=== PATIENT | female | born 1995 ===

== ENCOUNTER 2016-12-20 12:55 | Inpatient (IN) | payer OTHER ==
[~2016-12-20] VITALS: Ht 167.6 cm; Wt 75.7 kg
[2016-12-20] MEDS ORDERED: Lactated Ringer's 1,000 ML IV PRN (13:23)
[2016-12-20] MEDS ORDERED: Sodium Chloride LOK Flush 10 mL Syringe IVFLUSH PRN (13:25)
[2016-12-20] MEDS ORDERED: fentaNYL-PF 50 mCg/mL 2 mL Inj IVPUSH PRN (13:25)
[2016-12-20] MEDS ORDERED: Penicillin G K Inj 5,000,000 UNITS in Dextrose 5% Minibag Plus 100 ML IV ONE (13:25)
[2016-12-20] MEDS ORDERED: Oxytocin 10 Unit/mL Inj IM PRN ×2 (13:25→21:20)
[2016-12-20] MEDS ORDERED: Hemorrhage Kit, Post Partum XX ONE ×2 (13:25→21:20)
[2016-12-20] MEDS ORDERED: Oxytocin 30 Units/500 mL LR 30 UNITS in IV Premix 1 EACH IV PRN ×3 (13:25→21:20)
[2016-12-20] MEDS ORDERED: Methylergonovine 0.2 mg/mL Inj IM PRN ×2 (13:25→21:20)
[2016-12-20] MEDS ORDERED: Carboprost 250 mCg/mL Inj IM PRN ×2 (13:25→21:20)
[2016-12-20 14:06] LABS: Mean Corpuscular Hemoglobin 30.7 pg (27.0-35.0); Mean Corpuscular Volume 92.3 fL (81-100)
[2016-12-20] MEDS ORDERED: fentaNYL 2 mCg/mL-Bupivicaine 0.125% 100 mL Premix EPIDURAL ONE (14:23)
[2016-12-20] MEDS ORDERED: fentaNYL 2 mCg/mL-Bupiv 0.125% 100 ML EPIDURAL SCH (14:25)
[2016-12-20] MEDS ORDERED: EPHEDrine Sulfate 50 mg/mL Inj IVPUSH PRN (14:25)
[2016-12-20] MEDS ORDERED: Ondansetron 2 mg/mL 2 mL Inj IVPUSH PRN (14:25)
[2016-12-20] MEDS ORDERED: Lactated Ringer's 500 ML IV ONE (14:25)
[2016-12-20] MEDS ORDERED: Atropine 1 mg/10 mL (Code) Syringe IVPUSH PRN (14:25)
[2016-12-20] MEDS ORDERED: Phenylephrine/NS-PF 100 mCg/mL 5 mL Syringe IVPUSH PRN (14:25)
--- NOTE | 2016-12-20 14:27 | PCM.HPANE ---
Patient Data Surgeon Admitting Provider:Caleb Moses MD Attending Provider:Caleb Moses MD Primary Care Physician:Caleb Moses MD Other Provider: Reason for Visit Term Labor Check TERM LABOR CHECK Ht/WT & BMI Body Mass Index Allergies Coded Allergies: No Known Allergies (Unverified , 12/20/16) Medications Hypertension Medication: No Home Meds Incl Beta Delmi: No History Hx of Heart Problems?: No Hx of Respiratory Problem?: No Hx Neurologic Problems?: No Hx of GI Problems?: No Female Hx: Positive for:: Currently Hx Surgeries?: No Smoking Status: Unknown if Ever Smoker Stop/Bang Treated for Sleep Apnea?: No Do You Have a CPAP Machine?: No CARLOS Risk Assessment: Low Risk, <3 Yes Risk Assessment Category Category 1A: Patient has history of documented sleep apnea, and HAS NOT received any narcotic, sedative or anesthesia administration during this stay. Category 1B: Patient has history of documented sleep apnea, and HAS received any narcotic , sedative or anesthesia administration during this stay Category 2: Patient has SUSPECTED Obstructive Sleep Apnea, and HAS received any narcotic , sedative or anesthesia administration during this stay. Category 3: Patient has SUSPECTED Obstructive Sleep Apnea and HAS NOT received narcotic, sedative or anesthesia administration during this stay. Category 4: Outpatient in Procedural Areas with known sleep apnea or who screen positive for High Risk via the STOP/BANG questionnaire. Exam Exam General Appearance: Oriented X3 HEENT/AIRWAY: MP 2 Lungs: Normal Air Movement Heart: Regular Rate/Rhythm Meds/Labs/Diagnostics Admission Meds Current Medications Penicillin G Potassium/ Dextrose/Water (Pfizerpen Inj/ D5W Minibag Plus) 100 ml @ 240 mls/hr ONCE ONCE IV Last administered on 12/20/16t 14:09; Start at 13:25; Stop 12/20/16 at 13:49; Status DC Labs Test 12/20/16 13:44 White Blood Count 14.2th/mm3 (3.8-10.1) Red Blood Count 4.69mil/mm3 (3.90-5.20) Hemoglobin 14.4g/dL (12.0-15.6) Hematocrit 43.3% (35.0-46.0) Mean Corpuscular Volume 92.3fL (81-100) Mean Corpuscular Hemoglobin 30.7pg (27.0-35.0) Mean Corpuscular Hemoglobin Concent 33.3% (32.0-37.0) Red Cell Distribution Width 12.7% (12.3-15.4) Platelet Count 281bil/L (150-400) Plan Impression Patient chart reviewed, patient interviewed and anesthestic plan with risks, benefits, and alternatives discussed, and informed consent obtained. ASA Physical Status: ASA2 Mod Systemic Disease Anesthetic Plan: Epidural Bene/Risks/Altern/Consents: Yes HP Complete Prior to Induction: Yes Didier Leone MD Dec 20, 2016 14:27
[2016-12-20] MEDS: Lactated Ringer's 1,000 ML IV SCH ×2 (15:15→17:50)
--- NOTE | 2016-12-20 16:41 | HP ---
[address] [address] HISTORY AND PHYSICAL PATIENT: ELICIA PISANO : 1995 MR#: [id number] ADMIT: 12/20/2016 JOB ID: [id number] ADMISSION DIAGNOSIS: Active labor at term. HISTORY OF PRESENT ILLNESS: Patient is 21-year-old, 1, para 0, at 39 weeks and 5 days gestational age by LMP, confirmed by 11-week ultrasound who had her complicated with the following. 1. Transfer of care from [facility] at around 28 weeks. 2. History of laparotomy in 2014 for multiple large ovarian cysts, per patient. Benign. No Complications. 3. History of low grade HERMELINDA Pap with negative high-risk HPV in June 2016. Followup Pap on November 2016 was within normal limits. 4. GBS positive bacteriuria. Patient presented in active labor with contractions. Cervical exam this morning was 1 cm and patient was sent home. Presented to triage for 2nd time, with 4 cm dilated cervix. No bleeding , no leakage of fluid. Reports movements. PAST OBSTETRICAL HISTORY: Primigravida. PAST GYNECOLOGIC HISTORY: No history of STDs. History of low-grade HERMELINDA Pap in June 2016. Followup Pap in November 2016 was within normal limits. PAST MEDICAL HISTORY: Insignificant. PAST SURGICAL HISTORY: Laparotomy in 2014 for three large ovarian cysts. Benign pathology. ALLERGIES: No known drug allergies. MEDICATIONS: vitamins. SOCIAL HISTORY: Denied any alcohol consumption. Denies any drugs of abuse. Denied any cigarette smoking. LABORATORIES: O-positive, antibody negative, rubella immune, serology nonreactive, hepatitis B surface antigen negative. HIV nonreactive. Quad screen, patient declined. One-hour glucose screening 103. GBS positive bacteriuria. PHYSICAL EXAMINATION: Patient is alert, oriented x3. Vital signs are 115/79 for blood pressure, respirations 16, pulse is 84, temperature 37.2 degrees centigrade. Heart is regular rate and rhythm. Positive S1, S2. Lungs clear to auscultation bilaterally. Abdomen: Gravid uterus, nontender. Positive bowel sounds. Lower extremities: No calf tenderness appreciated bilaterally. Cervical exam: 7 cm dilated cervix, 90% effaced, -2 station, bulging membranes. heart tracing showing baseline of 140 beats per minute, positive accelerations, no decelerations, moderate variability, category 1 heart tracing. ASSESSMENT AND PLAN: Patient is a 21-year-old, 1, para 0, at 39 weeks and 5 days gestational age by last menstrual period, confirmed by 11-week ultrasound. complicated with the above list. 1. Active labor. Expectant management. 2. GBS bacteriuria. Penicillin prophylaxis started. 3. Discussed intrapartum analgesia. Patient opted for epidural analgesia, anesthesia notified. 4. Category 1 heart tracing. Will continue with external monitoring. All the above was discussed in details with the patient who agrees to the plan. STEPHANY
[2016-12-20] MEDS ORDERED: Penicillin G K 3,000,000 Units/50 mL D5W Premix IV ONE (17:42)
[2016-12-20] MEDS ORDERED: Penicillin G K Inj 3,000,000 UNITS in IV Premix 1 EACH IV SCH (20:30)
[2016-12-20] MEDS ORDERED: Lactated Ringer's 1,000 ML IV SCH (21:17)
[2016-12-20] MEDS ORDERED: Witch Hazel-Glycerin Pads TOPICAL PRN (21:20)
[2016-12-20] MEDS ORDERED: Benzocaine (Dermoplast) 20% 60 Gm Spray TOPICAL PRN (21:20)
[2016-12-20] MEDS ORDERED: LANOlin HPA 7 Gm Ointment TOPICAL PRN (21:20)
[2016-12-20] MEDS ORDERED: oxyCODONE-Acetamin 5-325 mg Tablet PO PRN (21:20)
--- NOTE | 2016-12-21 07:30 | OP ---
[address] [address] OPERATIVE REPORT PATIENT: ELICIA PISANO : 1995 MR#: [id number] ADMIT: 12/20/2016 JOB ID: [id number] DATE OF SURGERY: 12/20/2016 PREOPERATIVE DIAGNOSIS(ES): A 21-year-old, 1, para 0, at 39 weeks and 5 days gestational age by last menstrual period, confirmed by 11 week ultrasound, admitted in active labor. Developed arrest of dilation at 7 cm that resolved with Pitocin augmentation. Patient progressed to fully dilated, +3 station. POSTOPERATIVE DIAGNOSIS(ES): A 21-year-old, 1, para 0, at 39 weeks and 5 days gestational age by last menstrual period, confirmed by 11 week ultrasound, admitted in active labor. Developed arrest of dilation at 7 cm that resolved with Pitocin augmentation. Patient progressed to fully dilated, +3 station. PROCEDURE: Spontaneous vaginal delivery. SURGEON: Haydee Aquino MD. ANESTHESIA: Epidural. ESTIMATED BLOOD LOSS: 500 cc. COMPLICATIONS: None. FINDINGS: Single viable female with Apgars 8/9. Weight is still pending. DESCRIPTION OF PROCEDURE: The patient started to push efficiently. Infant head delivered in the right occiput anterior position, followed by the shoulders and the rest of the body. Delayed cord clamping allowed for 60 seconds. Infant placed over mom's chest. Placenta followed spontaneously. Upon inspection, it was noted to be intact with three-vessel cord centrally inserted. Firm uterine fundus with no blood clots after delivery of the placenta. Inspection of the perineum revealed a right labial laceration that was repaired with interrupted sutures of 2-0 Vicryl after injecting 5 cc of 1% lidocaine for local analgesia. The patient tolerated the procedure well. Sponge, needle and instrument counts were correct x2. Mom and baby recovering in a stable condition in labor and delivery room. Dr. Aquino was present and scrubbed for the entire procedure. STEPHANY
[2016-12-21 07:42] LABS: Mean Corpuscular Hemoglobin 31.1 pg (27.0-35.0); Mean Corpuscular Volume 93.5 fL (81-100)
[2016-12-21] MEDS ORDERED: Ascorbic Acid 500 mg Tablet PO SCH (08:00)
--- NOTE | 2016-12-21 11:47 | PCM.ANEP2 ---
Post Anesthesia Evaluation ASA/CMS Post Anesthesia VS in Patient's Normal Range?: Yes Resp Stable; Airway Patent?: Yes CV Function & Hydration Stable: Yes Mental Status Recovered?: Yes Pain control Satisfactory?: Yes N/V Control Satisfactory?: Yes Stewart Tracey MD Dec 21, 2016 11:47
--- NOTE | 2016-12-21 11:47 | PCM.ANEP1 ---
Post Anesthesia Phase 1 PACU Phase 1 Assessment Anesthetic Administered: Epidural Level of Alertness: Awake, talking CAO's with Equal Strength: Yes Pain: No Nausea or Vomiting: No Oxygen Delivery: Room Air Lungs: Normal Air Movement Stewart Tracey MD Dec 21, 2016 11:47
--- NOTE | 2016-12-21 14:56 | PCM.DIOB ---
Obstetrical Disch Instruction Date of Service: Dec 21, 2016 Dates of Hospitalization Date of Hospital Admission Dec 20, 2016 at 13:15 Providers Admitting Physician: Caleb Moses MD Primary Care Physician: Caleb Moses MD Attending Physician: Caleb Moses MD Discharge Diagnosis Discharge Diagnosis Normal Vaginal Delivery. Anemia. Problems: Diet Discharge Diet: No restrictions Activity Discharge Activity-General: Pelvic Rest for 6 weeks, Balance rest and activity , No lifting >10 pounds for 4-6 weeks Dressing and Incisional Care Hygiene: May shower, Perineal care, Sitz bath Follow Up Plan Follow-up Provider (F9): Caleb Moses MD Follow-up appointment: Weeks (Two) Call your provider for: Fever or Chills, Shortness of breath, Heavy vaginal bleeding, Heavy bleeding, Epigastric pain, Excessive constipation, Vaginal discomfort, Red painful breasts, Other (leg swelling, pain or redness, nausea , vomiting, headache or change in vision. ) Caleb Moses MD Dec 21, 2016 14:56
[2016-12-21] MEDS ORDERED: Lanolin TOPICAL (15:00)
[2016-12-21] MEDS ORDERED: Ascorbic Acid PO (15:00)
[2016-12-21] MEDS ORDERED: FERR-74 PO (15:01)
[2016-12-21] MEDS ORDERED: IBUP-1827 PO (15:01)
[2016-12-21] MEDS ORDERED: DOCU-41 PO (15:01)
[2016-12-21] MEDS ORDERED: OXYC1TAB24 PO (15:01)
--- NOTE | 2016-12-21 15:06 | PCM.DC.OB ---
Obstetrical Discharge Summary Date of Service Dec 21, 2016 Date of hospital admission Dec 20, 2016 at 13:15 Date of Discharge: Dec 21, 2016 Providers Admitting Physician: Sherry Barrera MD Primary Care Physician: Sherry Barrera MD Attending Physician: Sherry Barrera MD Diagnosis at Time of Discharge 1.S/P on 12/20/16. 2. Post- anemia. Problems: Hospital Course: This is a 21 year-old 1, now para 1 presented in active labor. 1.S/P on 12/20/16. 2. Post- anemia. COMPLICATED WITH: 1. Transfer of care from [facility] at around 28 weeks. 2. History of laparotomy in 2014 for multiple large ovarian cysts, per patient. Benign. No Complications. 3. History of LSIL Pap with negative high-risk HPV in June 2016. Followup Pap on November 2016 was within normal limits. 4. GBS positive bacteriuria. Patient presented in active labor with contractions. OUTCOME: 3929g, Apgars 8/9 , female, see delivery note for details. DISCHARGE DAY EXAM: day number 1, patient is ambulating, tolerating regular diet without nausea or vomiting and voiding without difficulty. Pain was well controlled. No chest pain, no headache or change in vision. VS: BP 121/73 HR 79 Respirations 20 SaO2 99 Temp 37.1 General: Alert, Oriented X3 Lungs: Clear to Auscultation, Clear to Percussion Heart: Regular Rate/Rhythm, Normal S1, Normal S2 Abdomen: Fundus firm Extremities: No tenderness/swelling, Edema 1+ Lochia: normal. LABS: Laboratory Tests 72 Hours Test 12/20/16 13:44 12/21/16 07:33 White Blood Count 14.2th/mm3 (3.8-10.1) 14.0th/mm3 (3.8-10.1) Red Blood Count 4.69mil/mm3 (3.90-5.20) 3.22mil/mm3 (3.90-5.20) Hemoglobin 14.4g/dL (12.0-15.6) 10.0g/dL (12.0-15.6) Hematocrit 43.3% (35.0-46.0) 30.1% (35.0-46.0) Mean Corpuscular Volume 92.3fL (81-100) 93.5fL (81-100) Mean Corpuscular Hemoglobin 30.7pg (27.0-35.0) 31.1pg (27.0-35.0) Mean Corpuscular Hemoglobin Concent 33.3% (32.0-37.0) 33.2% (32.0-37.0) Red Cell Distribution Width 12.7% (12.3-15.4) 12.4% (12.3-15.4) Platelet Count 281bil/L (150-400) 202bil/L (150-400) labs: O-positive, antibody negative, rubella immune, serology nonreactive, hepatitis B surface antigen negative. HIV nonreactive. Quad screen, patient declined. One-hour glucose screening 103. GBS positive in urine. Discharge Diagnosis Discharge Diagnosis Normal Vaginal Delivery. Anemia. Problems: Diet Discharge Diet: No restrictions Activity Discharge Activity-General: Pelvic Rest for 6 weeks, Balance rest and activity , No lifting >10 pounds for 4-6 weeks Dressing and Incisional Care Hygiene: May shower, Perineal care, Sitz bath Follow Up Plan Follow-up Provider (F9): Sherry Barrera MD Follow-up appointment: Weeks (Two) Call your provider for: Fever or Chills, Shortness of breath, Heavy vaginal bleeding, Heavy bleeding, Epigastric pain, Excessive constipation, Vaginal discomfort, Red painful breasts, Other (leg swelling, pain or redness, nausea , vomiting, headache or change in vision. ) ([Lanolin]) 2 APPLIC/GM OINT 1 APPLIC TOPICAL PRN PRN PRN apply to nipples Prescribed by: SHERRY BARRERA MD ([Ascorbic Acid]) 500 MG TABLET 500 MG PO DAILY Prescribed by: SHERRY BARRERA MD Docusate Sodium (Colace) 100 Mg Capsule 100 MG PO BID Prescribed by: SHERRY BARRERA MD Ferrous Sulfate (Feosol) 325 Mg Tablet 325 MG PO DAILY Prescribed by: SHERRY BARRERA MD Ibuprofen (Ibuprofen) 600 Mg Tablet 600 MG PO Q6H PRN PRN For Pain Prescribed by: SHERRY BARRERA MD oxyCODONE-Acetaminophen 5-325 mg (oxyCODONE-Acetaminophen 5-325 mg) 1 Each Tablet 1-2 TAB PO Q4H PRN PRN For Pain Prescribed by: MD Aurelia MIRELES Omaima A MD Dec 21, 2016 15:06
[2016-12-21 20:28] VITALS: BP 120/77; PULSE 76; RESP 18
== END 2016-12-21 21:18 | disposition home or self-care (01) | DRG 775 ==
LOC: FBCO 12:55 → FBC 13:15
PROVIDERS: ADMIT Obstetrics & Gynecology; ATTEND Obstetrics & Gynecology
PROC: 10E0XZZ Delivery of Products of Conception, External Approach (ICD-10-PCS; principal; 2016-12-20)
PROC: 0HQ9XZZ Repair Perineum Skin, External Approach (ICD-10-PCS; 2016-12-20)
DX: O99.824 Streptococcus B carrier state complicating childbirth (principal); O77.0 Labor and delivery complicated by meconium in amniotic fluid; Z3A.39 39 weeks gestation of pregnancy; Z37.0 Single live birth; O70.9 Perineal laceration during delivery, unspecified